=== PATIENT | female | born 1940 | race Caucasian/White ===

== ENCOUNTER 2024-12-07 08:30 | Outpatient (CLI) | payer OTHER ==
[2024-12-06 10:21] LABS: CREATININE 1.09 MG/DL (0.40-0.90); TOTAL CARBON DIOXIDE 26.9 MMOL/L (24-32); eGFR 48 ML/MIN
--- NOTE | 2024-12-07 09:53 | RADIOLOGY REPORT ---
CT CTA NECK INDICATION: OCCLUSION AND STENOSIS OF BILATERAL CAROTID ARTERIES EXAM DATE: 12/07/2024 08:53 AM COMPARISON: None RADIATION DOSE: CTDIvol: 16 mGy, DLP: 428 mGy*cm PROCEDURE: CT angiogram images were obtained of the head and neck. Coronal and sagittal reformatted i mages were created as well as 3D and/or MIP reconstructions. All CT scans at this medical facility are performed using dose modulation techniques as appropriate t o a performed exam including the following: Automated exposure control was utilized; adjustment of th e MA and/or KV according to patient size; and use of iterative reconstruction technique. FINDINGS: Neck: 80% atherosclerotic narrowing of the distal right common carotid artery at the bifurcation. The left common carotid, internal carotid, external carotid, and vertebral arteries are otherwise nor mal in caliber. The right vertebral artery is dominant. The visualized intracranial arteries are norm al. There is no evidence of contrast extravasation, filling defects, stenosis, or dissection. The pharynx and airway are normal. The thyroid, submandibular, and parotid glands appear normal. No l ymphadenopathy is seen. The visualized intracranial structures are unremarkable. IMPRESSION: Severe 80% atherosclerotic narrowing of the distal right common carotid artery at the bifurcation. Otherwise unremarkable CT angiographic findings of the neck.
== END 2024-12-07 23:59 | disposition home or self-care (01) ==
LOC: RAD 08:30
PROVIDERS: ATTEND Internal Medicine Interventional Cardiology
DX: I65.23 Occlusion and stenosis of bilateral carotid arteries (principal); E78.5 Hyperlipidemia, unspecified
CPT/HCPCS: 36415; 70498; 80048; Q9967

== ENCOUNTER 2025-03-25 13:58 | Inpatient (IN) | payer OTHER ==
[2025-03-22 11:07] LABS: MEAN PLATELET VOLUME 8.3 FL (7.4-10.4); RED CELL DISTRIBUTION WIDTH 14.6 % (11.5-14.5)
[2025-03-22 11:19] LABS: APTT 25 SECONDS (22-32); INR 1.0 INR
[2025-03-22 11:26] LABS: CHOL/HDL RATIO 2.1 (0.00-4.99); LDL CHOLESTEROL 59 MG/DL (50-100); TOTAL CARBON DIOXIDE 27.9 MMOL/L (24-32)
[2025-03-22 11:36] LABS: CREATININE 0.96 MG/DL (0.40-0.90); eGFR 55 ML/MIN
[~2025-03-25] VITALS: Ht 157.5 cm; Wt 65.8 kg
[2025-03-25] VITALS (13 sets, daily range): BP systolic 95–125; BP diastolic 43–87; PULSE 44–64; RESP 14–20; TEMP 97.6–97.8; O2SAT 96–99
[2025-03-25] MEDS ORDERED: CLOP75TA34 PO (14:30)
[2025-03-25] MEDS ORDERED: LISI10TA27 PO (14:30)
[2025-03-25] MEDS ORDERED: ATOR40TA72 PO (14:30)
[2025-03-25] MEDS ORDERED: LACT1CAP60 PO (14:30)
[2025-03-25] MEDS ORDERED: AMLO10TA13 PO (14:30)
[2025-03-25] MEDS ORDERED: ASPI-611 PO (14:31)
[2025-03-25] MEDS ORDERED: EZET10TA80 PO (14:31)
--- NOTE | 2025-03-25 14:41 | ELECTROCARDIOGRAPH REPORT ---
[facility] Test Date: 2025-03-25 Test Time: 14:39:26 Pat Name: CHLOE NAPIER Department: [facility] Patient ID: [facility]-[id number] Room: [place] [address] Gender: F Area Counselor: TONY : 1940 Requested By: PARVEEN SAEZ Order Number: [id number] Reading MD: Dr. Sandra Saez Measurements Intervals [place] Rate: 65 P: -82 [place]: 153 QRS: -43 QRSD: 146 T: 89 QT: 478 QTc: 498 Interpretive Statements Sinus rhythm Ventricular premature complex Left bundle branch block Electronically Signed On 03-25-2025 19:58:[address] Sandra Saez Please click the below link to view image of tracing.
[2025-03-25] MEDS ORDERED: atropine 0.1mg/ml 10ml syringe ONE (16:19)
[2025-03-25] MEDS ORDERED: LIDOcaine 1% 30ml preserv. free vial ONE (16:19)
[2025-03-25] MEDS ORDERED: heparin 1,000unit/ml 10ml vial 10 ML ONE (16:19)
[2025-03-25] MEDS ORDERED: phenylephrine 10mg/ml inj. ONE (16:19)
[2025-03-25] MEDS ORDERED: DOPamine 400mg/D5W 250ml 0 ML IV ONE (16:19)
[2025-03-25] MEDS ORDERED: clopidogrel 300mg tablet ONE (17:57)
[2025-03-25] MEDS ORDERED: HYDROcodone/acetaminophen 10/325mg tab PO PRN (18:30)
[2025-03-25] MEDS ORDERED: OXAZEpam 15mg capsule PO PRN (18:30)
[2025-03-25] MEDS ORDERED: hydrALAZINE 20mg/ml inj. IV PRN (18:30)
[2025-03-25] MEDS ORDERED: pseudoephedrine 30mg tablet PO PRN (18:30)
[2025-03-25] MEDS ORDERED: HYDROcodone/acetaminophen 5mg/325mg tablet PO PRN (18:30)
[2025-03-25] MEDS: normal saline 1000ml 1,000 ML IV SCH (18:53)
[2025-03-26 02:00] VITALS: BP 102/40; PULSE 42; RESP 16; TEMP 97.6; O2SAT 98
[2025-03-26 06:00] VITALS: BP 112/32; PULSE 45; RESP 15; TEMP 97.5; O2SAT 96
[2025-03-26 08:00] VITALS: RESP 15; O2SAT 96
[2025-03-26] MEDS: aspirin 81mg, enteric-coated 1 TAB TABLET.DR PO SCH (08:20)
[2025-03-26 08:21] VITALS: BP_SYST 112; PULSE 45
[2025-03-26] MEDS: lactobacillus rhamnosus 10,000 MMU CELLS/CAPSULE PO SCH (08:22)
--- NOTE | 2025-03-26 09:32 | DISCHARGE SUMMARY ---
Discharge Summary Providers to CC ~ Discharge Summary Admission Diagnosis: CAROTID STENOSIS Hospital Course DATE OF ADMISSION: 03/25/25 DATE OF DISCHARGE: 03/26/25 Discharge Diagnosis\Comment: Carotid artery stenosis status post right ICA stent Operations\Procedures: Right internal carotid artery angiography with stenting Consultants: No consultants Complications: No complications Condition on DC: Stable Continued Medications: Amlodipine Besylate (Amlodipine Besylate) 10 Mg Tablet 1 TAB PO DAILY Aspirin (Aspir 81) 81 Mg Tablet.dr 1 TAB PO DAILY, TAB Atorvastatin Calcium (Atorvastatin Calcium) 40 Mg Tablet 1 TAB PO DAILY Clopidogrel Bisulfate (Clopidogrel) 75 Mg Tablet 1 TAB PO DAILY Ezetimibe (Ezetimibe) 10 Mg Tablet 1 TAB PO DAILY Lactobac Cmb #3/Fos/Pantethine (Probiotic & Acidophilus Cap) 300MM-250 Capsule 1 CAP PO DAILY Lisinopril (Lisinopril) 10 Mg Tablet 1 TAB PO DAILY Discharge Summary: Patient has past medical history of hypertension, hyperlipidemia, carotid artery stenosis, mild aortic stenosis, hyperlipidemia, SVT. Presented for planned carotid angiography with stenting. Underwent placement of a right internal carotid artery stent. Please see Dr. Maurisio chou's dictation for further details on the procedure. She tolerated well. Was monitored overnight in the telemetry unit. Has remained hemodynamically stable. Heart rate is bradycardic. She denies dizziness, lightheadedness. Has been up and ambulatory without complaints. Physical exam prior to discharge: General: Awake, alert. No apparent distress Respiratory: Lungs are clear to auscultation bilaterally. No respiratory distress. Chest: Normal shape and size. No accessory muscle use. Cardiovascular: Regular rhythm. Bradycardic. Gastrointestinal: Abdomen is soft. Nontender to palpation. Bowel sounds present. Extremities: No lower extremity edema, cyanosis or clubbing. Right femoral cath site with dressing clean dry and intact. No ecchymosis or swelling. No hematoma. Dorsalis pedis pulses palpable. Neurologic: Awake, alert. Facial features are symmetrical. Sensation intact. Moving all extremities. No deficits appreciated. Psychiatric: Normal mood and affect. Skin: Normal color. Warm and dry. Plan: Patient is being discharged home in stable condition. She will follow up as scheduled. She will continue aspirin, Plavix, statin. She will hold her amlodipine given lower blood pressures for the next day. Case discussed with Dr. Yoselin Chou who is in agreement with this plan. *Problems/Diagnosis: (1) Carotid artery stenosis Total Time Spent on D/C: Up to 30 Minutes Counseling Services Smoking & Tobacco Cessation: N/A RADHA PETERSON NP Mar 26, 2025 09:32
--- NOTE | 2025-04-06 11:52 | CARDIOLOGY REPORT ---
DATE OF SERVICE: 03/25/2025 DICTATING PHYSICIAN: Sandra Saez MD CARDIAC CATHETERIZATION REPORT DATE OF STUDY: 03/25/2025 PROCEDURES: * Aortic arch angiography. * Selective right common and nonselective right internal and external artery angiography. * Angioplasty of the right internal and common carotid artery. * Stenting x1 of the right internal and common carotid artery. INDICATION: High-grade stenosis. PHYSICIAN: Sandra Saez M.D. DESCRIPTION OF PROCEDURE: After informed consent was obtained, the patient was brought to the lab where she was prepped and draped in the usual sterile fashion. After adequate anesthesia was obtained using 1% lidocaine to the right groin, a 6-Nigerian sheath was inserted into the right femoral artery. Thereafter, using a pigtail catheter, the catheter was advanced into the ascending aorta and aortic arch angiography performed. Next, over a 0.035 wire, a [place] 2 catheter was used and advanced into the ascending aorta and manipulated to engage the right common carotid artery and selective right common and nonselective right internal and external carotid artery angiography was performed. Revascularization was then performed as described below. HEMODYNAMICS: For the patient's hemodynamics, please refer to the event log. FINDINGS: The patient has a type 2 aortic arch with mild calcification of the arch and takeoff of the great vessels. No significant stenosis noted. The right common carotid artery immediately before it bifurcates into the internal and external carotid artery has a discrete 80% stenosis. Percutaneous transluminal angioplasty/stenting: Because of the high-grade stenosis proximal to the internal carotid artery, the 6 [place] sheath was exchanged for an 8-[place]igerian sheath and a right internal mammary artery guiding catheter used and advanced to engage the common carotid artery. Next, using a 7.2 [place], the protection device was carefully navigated across the lesion into the internal carotid artery where it was deployed. Using a 4 x 20 mm balloon, angioplasty of the common carotid artery was performed. Next, using a 9-7 x 30 XACT stent, the stent was advanced across the common and internal carotid artery where it was deployed. This was then post dilated with a 5 x 20 mm balloon. Next, using the retrieval catheter, the Emboshield was retrieved. Follow-up angiography revealed excellent angiographic results. IMPRESSION: * Angioplasty/stenting of an 80% right common and internal carotid artery stenosis with a 9-7 x 30 XACT stent with excellent angiographic results and 0% residual. * The patient remained clinically and hemodynamically stable throughout the procedure and during recovery. Sandra Saez MD TID: [id number] RECEIPT: [id number] [place]
== END 2025-03-26 10:15 | disposition home or self-care (01) | DRG 36 ==
LOC: SSTAY O 13:58 → PCU 3S 18:51
PROVIDERS: ADMIT Internal Medicine Interventional Cardiology; ATTEND Student in an Organized Health Care Education/Training Program
PROC: 037K3DZ Dilation of Right Internal Carotid Artery with Intraluminal Device, Percutaneous Approach (ICD-10-PCS; principal; 2025-03-25)
PROC: 037 Upper Arteries, Dilation (ICD-10-PCS; 2025-03-25)
PROC: B3191ZZ Fluoroscopy of Right External Carotid Artery using Low Osmolar Contrast (ICD-10-PCS; 2025-03-25)
PROC: B4101ZZ Fluoroscopy of Abdominal Aorta using Low Osmolar Contrast (ICD-10-PCS; 2025-03-25)
DX: I65.21 Occlusion and stenosis of right carotid artery (principal); E78.5 Hyperlipidemia, unspecified; I10 Essential (primary) hypertension
CPT/HCPCS: 36222; 36415; 37215; 80048; 80061; 85025; 85610; 85730; 87081; 93005; A6258; A6402; C1725; C1751; C1760; C1769; C1876; C1884; C1894; G0378; J0461; J1265; J1644; J2003; J2371; J7030; Q9967